=== PATIENT | male | born 1980 | race Caucasian/White ===

== ENCOUNTER 2022-07-19 02:22 | Emergency (ER) | payer MEDICARE, SELFPAY ==
[2022-07-19 02:23] VITALS: BP 122/84; PULSE 81; RESP 22; TEMP 36.6; O2SAT 94; BMI 21.2
[2022-07-19 02:49] VITALS: O2SAT 95
--- NOTE | 2022-07-19 02:49 | ED_ITS ---
HPI - COVID General: Chief Complaint: COVID symptoms Stated Complaint: Sinus infection\Fever\N\V Time Seen by Provider: 07/19/22 02:37 History of Present Illness: Patient is a 42-year-old male presenting today with nausea vomiting diarrhea as well as cough and sore throat. Patient notes onset of symptoms this evening. Notes symptoms are severe. 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 He notes this pain is consistent due to the pain he is had in the past. He also notes fevers and chills. Diffuse body aches as well as headache. Was seen in urgent care earlier this evening. Started on doxycycline. He notes that despite this medi cine he does not appear to be improving. COVID Results: No Data to Display Review of Systems General: Reports: 10 or more systems reviewed and unremarkable except in HPI and below Physical Exam Const: COMMON NORMALS: no acute distress, patient oriented x3 and alert GENERAL APPEARANCE: cooperative ORIENTATION/CONSCIOUSNESS: Yes awake, Yes oriented to person, Yes oriented to place and Yes oriented to time HENMT: COMMON NORMALS: normocephalic, atraumatic, external ears normal, Normal external nose present and moist oral mucous membranes HEAD & SCALP: normal to inspection, normocephalic and atraumatic NOSE: Normal external nose present GENERAL EAR: hearing grossly impaired EXTERNAL EAR: Yes external ears normal Eye: COMMON NORMALS: Equal, round and reactive pupils present, EOMs intact bilaterally, conjunctivae normal and no scleral icterus GENERAL EYE: appearance normal, both eyes and all related structures EYELID: eyelids normal CONJUNCTIVA: Yes conjunctivae normal SCLERA: sclerae normal PUPIL: Yes Equal, round and reactive pupils present Neck/C-Spine: COMMON NORMALS: full ROM, supple and no JVD GENERAL: Yes normal visual inspection Lymph: LYMPHATIC: no lymphadenopathy noted and no lymphedema noted Chest: COMMONS NORMALS: normal inspection of the chest Resp: COMMON NORMALS: normal respiratory effort, No retractions and No use of accessory muscles Cardio: COMMON NORMALS: no JVD, regular rate and regular rhythm RATE: reg ular rate RHYTHM: regular rhythm GI: COMMON NORMALS: Normal to inspection, nondistended, normoactive bowel sounds present : COMMON NORMALS: Yes no CVA tenderness BLADDER/KIDNEY EXAM: Yes no CVA tenderness Back/Pelvis: COMMON NORMALS: no CVA tenderness and thoracic and lumbar spine normal to inspection Extremity: COMMON NORMALS: normal to inspection, full ROM and capillary refill normal GENERAL: Yes normal exam except as noted Neuro: COMMON NORMALS: patient oriented x3, CN's II-XII intact bilaterally, moves all extremities, no focal motor deficits, no sensory deficits noted and gait normal SENSORIUM/ORIENTATION: Yes alert, Yes oriented to person, Yes oriented to place and Yes oriented to time Psych: COMMON NORMALS: mental status grossly normal, Normal thought process present, cooperative and normal affect THOUGHT PROCESS: Normal thought process present Skin: COMMON NORMALS: no rashes or lesions noted and no wounds GENERAL SKIN EXAM: no rashes or lesions noted Course Vital Signs: Vital signs: Vital Signs Temperature 97.9 F 07/19/22 02:23 Pulse Rate 81 07/19/22 02:23 Respiratory Rate 22 H 07/19/22 02:23 Blood Pressure 122/84 07/19/22 02:23 Pulse Oximetry 95 07/19/22 02:49 Oxygen Delivery Me thod 07/19/22 02:49 MDM - COVID Medical Decision Making 42-year-old male presenting with nausea vomiting diarrhea. Abdominal exam is benign and not suggestive of acute life-threatening pathology. Vitals are with slight tachypnea otherwise within normal limits. Patient was given Zofran with resulting p.o. tolerance. Will give Zofran for home. COVID test sent. Patient 's results were unable to be given in the ED secondary to down analyzer. Patient was given strict return precautions and recommended routine outpatient follow-up. 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
[2022-07-19] MEDS: ondansetron 4 MG Tablet 8 MG PO (02:54)
[2022-07-19 03:07] VITALS: BP 149/76; PULSE 89; RESP 16; O2SAT 95
[2022-07-19 04:38] LABS: Adenovirus Not Detected (NOT DETECT); Chlamydia Pneumoniae Not Detected (NOT DETECT); Coronavirus 229E,HKU1,NL63,OC4 Not Detected (NOT DETECT); Human Metapneumovirus Not Detected (NOT DETECT); Human Rhinovirus/Enterovirus Detected (NOT DETECT); Influenza A Not Detected (NOT DETECT); Influenza A H1 Not Detected (NOT DETECT); Influenza A H1-2009 Not Detected (NOT DETECT); Influenza A H3 Not Detected (NOT DETECT); Influenza B Not Detected (NOT DETECT); Mycoplasma Pneumoniae Not Detected (NOT DETECT); Parainfluenza Virus Type 1 Not Detected (NOT DETECT); Parainfluenza Virus Type 2 Not Detected (NOT DETECT); Parainfluenza Virus Type 3 Not Detected (NOT DETECT); Parainfluenza Virus Type 4 Not Detected (NOT DETECT); Respiratory Syncytial Virus A Not Detected (NOT DETECT); Respiratory Syncytial Virus B Not Detected (NOT DETECT); SARS-COV-2 Not Detected (NOT DETECT)
[2022-07-19 06:48] LABS: Human Metapneumovirus Not Detected (NOT DETECT); Human Rhinovirus/Enterovirus Detected (NOT DETECT); Results from Genmark
== END 2022-07-19 03:08 | disposition home or self-care (01) ==
PROVIDERS: Emergency Provider Emergency Medicine
DX: R10.9 Unspecified abdominal pain (principal); R11.2 Nausea with vomiting, unspecified; B34.1 Enterovirus infection, unspecified
CPT/HCPCS: 71045; 80053; 85025; 87635; 87801; 93005; 96361; 96374; 99283; 99285; J2405; Q0162

== ENCOUNTER 2022-07-19 09:33 | Emergency (ER) | payer MEDICARE, SELFPAY ==
[2022-07-19 09:50] VITALS: BMI 21.9
[2022-07-19 09:55] VITALS: BP 116/82; PULSE 90; RESP 18; TEMP 36.5; O2SAT 93
--- NOTE | 2022-07-19 10:05 | ECG_ITS ---
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 Measurements Intervals [place] Rate: 84 P: 80 [place]: 152 QRS: 81 QRSD: 97 T: 55 QT: 332 QTc: 394 Interpretive Statements SINUS RHYTHM ST ELEVATION, PROBABLY EARLY REPOLARIZATION [ST ELEVATION WITH NORMALLY INFLECTED T-WAVE] No previous ECG available for comparison Electronically Signed On 07-19-2022 16:23:37 CDT by Tasneem Wilcox M.D. [email or web address] Biomedical Research Institutecleveland clinicAnna-Rita [employer]/store/OM/[id number]
--- NOTE | 2022-07-19 10:05 | XR_ITS ---
WS: [id number] Portable AP upright chest, 07/19/2022 Clinical Data: dyspnea/cough Comparison: None. Findings: No nodules, masses or effusions are seen. The heart is normal. The pulmonary vascularity is not increased. No pneumonia or pneumothorax is seen. XR/XR chest 1V portable [id number] Impression: Negative chest.
--- NOTE | 2022-07-19 10:16 | PC.NURSE ---
pt reports he went to urgent care and they gave him doxycycline for a sinus infections. pt reports he started vomiting last night. pt reports concerns because he had stomach surgery in the past and was told that he would never vomit again. family reports the vomit looked like the green stuff that was draining from his nose. pt resting in bed, lung sounds clear bilat. bowel sounds present x4. abdomen soft and tender to palpation.
[2022-07-19] MEDS: ondansetron 2 mg/ML SDV 2 mL 4 MG IVP (10:31)
[2022-07-19] MEDS: lactated ringers 1,000 ML 999 ML IV (10:35)
[2022-07-19 10:42] LABS: Basophils % 0.2 %; Eosinophils % 0.1 %; Hematocrit 43.3 % (42.0-52.0); Hemoglobin 14.5 g/dL (11.7-16.6); Lymphocytes # 1.3 10^3/uL (0.8-4.8); Lymphocytes % 9.3 %; Mean Corpuscular HGB Conc 33.5 g/dL (30.0-36.0); Mean Corpuscular Hemoglobin 30.5 pg (28.0-34.0); Mean Platelet Volume 11.2 fL (7.4-10.4); Monocytes # 0.9 10^3/uL (0.2-0.9); Monocytes % 6.7 %; Neutrophils # 11.41 10^3/uL (1.8-7.7); Neutrophils % 83.4 %; Nucleated Red Blood Cells % 0 %; Platelet Count 234 10^3/cmm (130-400); Red Blood Count 4.76 10^6/uL (4.1-5.3); Red Cell Distribution Width 12.7 % (12.1-15.1); White Blood Count 13.7 10^3/uL (4.0-10.0)
--- NOTE | 2022-07-19 10:45 | W.ED.NAVMDI ---
HPI - Nausea/Vomiting/Diarrhea General: Chief complaint: Nausea/Vomiting/Diarrhea Stated complaint: Infection, dehydration, and pain Time Seen by Provider: 07/19/22 09:59 Source: patient Mode of arrival: ambulatory History of Present Illness: 42-year-old male presents emergency room he was here last night with complaint of sinus infection and drainage she has had for the last couple of days he was started on some antibiotics actually seem to make things worse when he takes them he gets more nauseous. Initially a little bit of diarrhea but that resolved when he was seen last night he was tested I did a respiratory panel was positive for enterovirus COVID was negative. He returns now because he still having symptoms. Patient denies any significant chest pain or shortness of breath. MD elicited complaint: nausea and vomiting Onset (ago): day(s) (3) Description of vomiting: food contents and watery Associated nausea: Yes Associated abdominal pain: Yes Location of pain: Diffuse Radiation: diffuse Pain consistency: intermittent Severity: moderate Quality: cramping Exacerbating factors: none Relieving factors: none Associated symtoms: Reports nausea; Denies chest pain, dysuria, fatigue or malaise Review of Systems Const: Denies: fever(s), chills, body aches, change in appetite, fatigue or malaise ENMT: Denies: throat pain, ear or mastoid pain, nasal discharge or nasal congestion Card: Denies: chest pain, edema, dyspnea on exertion or orthopnea Resp: Denies: dyspnea, productive cough or non-productive cough GI: Reports: abdominal pain, nausea and vomiting; Denies: diarrhea : Denies: flank pain, difficulty urinating, dysuria, urinary frequency or urinary urgency Skin/Breast: Denies: rash or pruritus Physical Exam Const: COMMON NORMALS: no acute distress GENERAL APPEARANCE: cooperative and comfortable ORIENTATION/CONSCIOUSNESS: Yes awake, Yes oriented to person, Yes oriented to place and Yes oriented to time HENMT: COMMON NORMALS: normocephalic, atraumatic and hearing grossly normal bilaterally HEAD & SCALP: normocephalic and atraumatic Resp: COMMON NORMALS: normal respiratory effort, No retractions, No use of accessory muscles and clear to auscultation bilaterally AUSCULTATION: clear to auscultation bilaterally Cardio: COMMON NORMALS: regular rate, regular rhythm and No murmurs present (Cardio) RATE: regular rate RHYTHM: regular rhythm GI: COMMON NORMALS: Soft to palpation and No hepatosplenomegaly present AUSCULTATION: Yes normoactive bowel sounds PALPATION: Yes Soft to palpation, No Tenderness to palpation present (GI), No Guarding due to palpation present (GI) and Yes No hepatosplenomegaly present Extremity: COMMON NORMALS: normal to inspection, capillary refill normal, no clubbing, cyanosis or edema, no calf tenderness and no pedal edema Neuro: SENSORIUM/ORIENTATION: Yes oriented to person, Yes oriented to place and Yes oriented to time Skin: COMMON NORMALS: no rashes or lesions noted GENERAL SKIN EXAM: no rashes or lesions noted Course Vital Signs: Vital signs: Vital Signs Temperature 97.7 F 07/19/22 09:55 Pulse Rate 83 07/19/22 13:19 Respiratory Rate 18 07/19/22 13:19 Blood Pressure 117/70 07/19/22 13:19 Pulse Oximetry 93 07/19/22 13:19 Oxygen Delivery Me thod 07/19/22 09:55 MDM - Nausea/Vomiting/Diarrhea Medical Decision Making Patient symptoms typical for the expected enterovirus patient was given IV fluids he is feeling much better we will discharge him home with promethazine to use. Clear liquid at 24 to 40 hours and advance as tolerated Medical Records I reviewed the patient's medical records. Lab Data I reviewed the patient's lab results. : 07/19/22 10:31 07/19/22 12:20 Radiology Impressions Chest X-Ray 07/19/22 10:05 Impression: Negative chest. Laboratory Results WBC 13.7 10^3/uL (4.0-10.0) H 07/19/22 10:31 RBC 4.76 10^6/uL (4.1-5.3) 07/19/22 10:31 Hgb 14.5 g/dL (11.7-16.6) 07/19/22 10:31 Hct 43.3 % (42.0-52.0) 07/19/22 10:31 MCV 91.0 fl (80-94) 07/19/22 10:31 MCH 30.5 pg (28.0-34.0) 07/19/22 10:31 MCHC 33.5 g/dL (30.0-36.0) 07/19/22 10:31 RDW 12.7 % (12.1-15.1) 07/19/22 10:31 Plt Count 234 10^3/cmm (130-400) 07/19/22 10:31 MPV 11.2 fL (7.4-10.4) H 07/19/22 10:31 Neut % (Auto) 83.4 % 07/19/22 10:31 Lymph % (Auto) 9.3 % 07/19/22 10:31 [place] % (Auto) 6.7 % 07/19/22 10:31 Eos % (Auto) 0.1 % 07/19/22 10:31 Baso % (Auto) 0.2 % 07/19/22 10:31 Neut # (Auto) 11.41 10^3/uL (1.8-7.7) H 07/19/22 10:31 Lymph # (Auto) 1.3 10^3/uL (0.8-4.8) 07/19/22 10:31 [place] # (Auto) 0.9 10^3/uL (0.2-0.9) 07/19/22 10:31 Eos # (Auto) 0.0 10^3/uL (0.0-0.8) 07/19/22 10:31 Baso # (Auto) 0.0 10^3/uL (0.0-0.1) 07/19/22 10:31 Nucleated RBC % (auto) 0 % 07/19/22 10:31 Nucleated RBCs # 0.0 /100WBC 07/19/22 10:31 Sodium 137 mmol/L (136-145) 07/19/22 12:20 Potassium 4.1 mmol/L (3.5-5.1) 07/19/22 12:20 Chloride 102 mmol/L (98-107) 07/19/22 12:20 Carbon Dioxide 25 mmol/L (22-29) 07/19/22 12:20 Anion Gap 14.1 (5-19) 07/19/22 12:20 BUN 10 mg/dL (6-20) 07/19/22 12:20 Creatinine 1.0 mg/dL (0.7-1.2) 07/19/22 12:20 GFR Calculation 81.2 mL/min (90-130) L 07/19/22 12:20 Glucose 114 mg/dL (65-115) 07/19/22 12:20 Calculated Osmolality 284 mOsm/kg (285-295) L 07/19/22 12:20 Calcium 9.2 mg/dL (8.5-10.5) 07/19/22 12:20 Total Bilirubin 0.7 mg/dL (0.15-1.2) 07/19/22 12:20 AST 15 U/L (0-40) 07/19/22 12:20 ALT 15 U/L (0-41) 07/19/22 12:20 Alkaline Phosphatase 73 U/L (40-130) 07/19/22 12:20 Total Protein 7.1 g/dL (6.6-8.7) 07/19/22 12:20 Albumin 3.9 g/dL (3.5-5.2) 07/19/22 12:20 Globulin 3.2 g/dL (1.3-4.6) 07/19/22 12:20 Discharge Plan Discharge Patient Disposition: Home Clinical Impression: Enterovirus infection Condition: Stable Prescriptions: New promethazine 25 mg tablet 25 mg PO Q6H PRN (Reason: nausea and vomiting) Qty: 20 0RF No Action doxycycline hyclate 100 mg tablet 100 mg PO BID 10 Days Qty: 20 0RF ondansetron 8 mg tablet,disintegrating 8 mg PO Q8H PRN (Reason: nausea and vomiting) 5 Days Qty: 30 0RF ProAir HFA 90 mcg/actuation Hfa Aerosol Inhaler 2 puff INHALATION QID PRN (Reason: Shortness Of Breath) Fiber Gummies 2 gram Tablet,Chewable 4 g PO DAILY Probiotic Gummies 2 tab PO DAILY Discharge Orders: Discharge ED (Routine); Ordered 07/19/22 Ordered By: Tio Cummings Discharge Diet: Clear Liquid Discharge Activity: Increase activity as tolerated Patient Instructions: Opioid Safety, Pain Management Activity Restrictions/Additional Instructions: Clear liquid diet for 24 to 48 hours and advance as tolerated Coding Level of Care Code ED 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
[2022-07-19 12:44] LABS: Alanine Aminotransferase 15 U/L (0-41); Albumin Level 3.9 g/dL (3.5-5.2); Alkaline Phosphatase 73 U/L (40-130); Anion Gap 14.1 (5-19); Aspartate Amino Transferase 15 U/L (0-40); Blood Urea Nitrogen 10 mg/dL (6-20); Calcium 9.2 mg/dL (8.5-10.5); Carbon Dioxide 25 mmol/L (22-29); Chloride 102 mmol/L (98-107); Globulin 3.2 g/dL (1.3-4.6); Glomerular Filtration Rate 81.2 mL/min (90-130); Glucose 114 mg/dL (65-115); Osmolality Calculated 284 mOsm/kg (285-295); Potassium 4.1 mmol/L (3.5-5.1); Sodium 137 mmol/L (136-145); Total Bilirubin 0.7 mg/dL (0.15-1.2); Total Protein 7.1 g/dL (6.6-8.7)
[2022-07-19 13:19] VITALS: BP 117/70; PULSE 83; RESP 18; O2SAT 93
== END 2022-07-19 13:21 | disposition home or self-care (01) ==
PROVIDERS: Emergency Provider Family Medicine
DX: B34.1 Enterovirus infection, unspecified (principal)
CPT/HCPCS: 71045; 80053; 85025; 93005; 96361; 96374; 99285; J2405

== ENCOUNTER 2022-10-16 12:41 | Outpatient (CLI) | payer MEDICARE, SELFPAY ==
--- NOTE | 2022-10-16 12:51 | XR_ITS ---
WS: [id number] Exam: XR cervical spine fl/ex [id number] Date/Time of Exam: 10/16/2022 12:54 PM Reason For Exam: CERVICALGIA No fracture or dislocation. In the neutral position there is straightening of the upper C-spine. No s ignificant flexion or extension instability is demonstrated. Normal paraspinal soft tissues. XR/XR cervical spine fl/ex [id number] IMPRESSION: 1. No significant flexion or extension instability. 2. There is straightening of the mid and upper C-spine in the neutral position.
== END 2022-10-16 12:42 | disposition home or self-care (01) ==
LOC: RAD 12:44
PROVIDERS: Visit Provider Nurse Practitioner
DX: M54.2 Cervicalgia (principal)
CPT/HCPCS: 72040

== ENCOUNTER 2022-11-07 20:00 | Outpatient (CLI) | payer MEDICARE, SELFPAY | END 2022-11-07 20:01 | disposition home or self-care (01) | LOC: SLEEP 11-08 05:06 | PROVIDERS: Visit Provider Family Medicine | DX: G47.33 Obstructive sleep apnea (adult) (pediatric) (principal) | CPT/HCPCS: 95810 ==

== ENCOUNTER 2022-11-22 11:40 | Emergency (ER) | payer MEDICARE, SELFPAY ==
[2022-11-22 12:09] VITALS: BP 119/87; PULSE 81; RESP 14; TEMP 36.4; O2SAT 98; BMI 21.1
--- NOTE | 2022-11-22 12:39 | W.ED.ABDPA2 ---
HPI - Abdominal Pain General: Chief Complaint: Abdominal Pain Stated Complaint: cant eat, sleep, no bowel movements Time Seen by Provider: 11/22/22 12:28 History of Present Illness: 41-year-old male in with concerns of crampy abdominal pain left greater than right. Is been going on for quite some time has been having some problems with his bowels but also his GI tract he was recently put on a generic proton pump inhibitor. He has been on this before and its helped his reflux somewhat but is cause some problems with constipation. Patient says that he frequently does not go as much as he thinks should. Patient's had some bowel movements more recently including this morning which are very small in caliber and volume. No fever or chills he has not had any vomiting. He is just generally felt unwell. He notes that sometimes foods can make this worse he has not found anything that is helped too much. Associated Symptoms: Reports bloating, change in bowel habits, constipation, GI cramping, excessive flatus and heartburn; Denies chills, coffee ground emesis, diarrhea, fever(s), hematochezia, hematemesis, melena and vomiting Review of Systems Const: Reports: malaise; Denies: fever(s), chills, body aches or change in weight Card: Denies: chest pain or palpitations Resp: Denies: dyspnea GI: Reports: abdominal pain, heartburn, constipation, bloating, GI cramping, excessive flatus and change in bowel habits; Denies: vomiting, hematemesis, coffee ground emesis, dysphagia, diarrhea, hematochezia or melena Skin/Breast: Denies: rash Physical Exam Const: GENERAL APPEARANCE: cooperative, comfortable and well developed; not in distress Resp: COMMON NORMALS: clear to auscultation bilaterally AUSCULTATION: clear to auscultation bilaterally, no crackles, no rales and no rhonchi Cardio: COMMON NORMALS: regular rate and regular rhythm RATE: regular rate RHYTHM: regular rhythm GI: COMMON NORMALS: Soft to palpation AUSCULTATION: Yes normoactive bowel sounds and No High-pitched bowel sounds present PALPATION: Yes Soft to palpation, No Firmness to palpation present (GI), No Tenderness to palpation present (GI), No Guarding due to palpation present (GI), No Rigid due to palpation, No Hepatomegaly present and No Splenomegaly present : COMMON NORMALS: No no CVA tenderness BLADDER/KIDNEY EXAM: No bladder normal to palpation and No no CVA tenderness Back/Pelvis: COMMON NORMALS: negative for no CVA tenderness Course Vital Signs: Vital signs: Vital Signs Temperature 97.6 F 11/22/22 12:09 Pulse Rate 81 11/22/22 12:09 Respiratory Rate 14 11/22/22 12:09 Blood Pressure 119/87 11/22/22 12:09 Pulse Oximetry 98 11/22/22 12:09 Oxygen Delivery Me thod 11/22/22 12:09 MDM - Abdominal Pain Medical Decision Making 41-year-old male in with abdominal pain longstanding in nature. More recently has had increasing trouble with constipation. I reviewed his KUB reveals some gas and some stool on the right side. Differential is broad but I do not think he has an acute abdomen I do not think that he has concerns of appendicitis or more emergent condition. He may benefit from GI consultation and endoscopy but he meets a lot of [place] criteria. We will try a trial of dicyclomine and get him some follow-up. I do not think a big work-up in the emergency department is indicated based on history physical examination. Patient appears quite comfortable and on reexamination of his abdomen is fairly benign. Discharge Plan Discharge Patient Disposition: Home Clinical Impression: Abdominal pain Condition: Stable Prescriptions: New dicyclomine 10 mg capsule 10 mg PO BID Qty: 20 0RF No Action doxycycline hyclate 100 mg tablet 100 mg PO BID 10 Days Qty: 20 0RF ProAir HFA 90 mcg/actuation Hfa Aerosol Inhaler 2 puff INHALATION QID PRN (Reason: Shortness Of Breath) Fiber Gummies 2 gram Tablet,Chewable 4 g PO DAILY Probiotic Gummies 2 tab PO DAILY promethazine 25 mg tablet 25 mg PO Q6H PRN (Reason: nausea and vomiting) Qty: 20 0RF Discharge Orders: Discharge ED (Routine); Ordered 11/22/22 Ordered By: Liam Rendon Patient Instructions: Abdominal Pain (ED), Opioid Safety, Pain Management Activity Restrictions/Additional Instructions: 1. Increase fluids and fiber. Take Rx as directed. 2. Follow up with PCP in 3-5 days for recheck. 3. Return to ED for fever, vomiting or worseing symptoms / pain. 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
--- NOTE | 2022-11-22 12:40 | XR_ITS ---
WS: [id number] Exam: XR KUB portable [id number] Date/Time of Exam: 11/22/2022 12:44 PM Reason For Exam: Pain No bowel obstruction or free air. No sign of organ enlargement. 6 x 3 mm calcification in the right a bdomen may represent a renal stone or gallstone. Bony structures are intact. XR/XR KUB portable [id number] IMPRESSION: 1. No acute abdominal finding. 2. 6 x 3 mm right abdominal calcification that could be a small gallstone or re nal stone.
[2022-11-22 13:38] VITALS: BP 120/84; PULSE 70; RESP 16; O2SAT 97
== END 2022-11-22 13:46 | disposition home or self-care (01) ==
PROVIDERS: Emergency Provider Family Medicine
DX: R10.9 Unspecified abdominal pain (principal)
CPT/HCPCS: 74018; 99283

== ENCOUNTER 2022-12-05 12:58 | Outpatient (CLI) | payer MEDICARE, SELFPAY ==
--- NOTE | 2022-12-05 | MR_ITS ---
WS: [id number] MRI CERVICAL SPINE NONCONTRAST HISTORY: CERVICALGIA COMPARISON: None available. Technique: Multiplanar, multisequence noncontrast imaging of the cervical spine. C5 retrolisthesis by 2 mm. No fractures or marrow edema. Minimal anterior wedging of T3 and T4 from r emote fractures. Signal within the cervical cord is normal. Visualized posterior fossa is unremarkable. Craniocervical junction, C1 and C2 relationship, odontoid process and soft tissues are normal. C2-C3: Normal. C3-C4: Mild annular disc bulging and osteophytic ridging. Small bilateral foraminal osteophytes, RIGH T greater than LEFT. Mild RIGHT foraminal stenosis. C4-C5: Very mild osteophytic ridging. No stenosis. C5-C6: Small central disc protrusion causing mild effacement of ventral CSF. Small bilateral foramina l osteophytes. Mild central and bilateral foraminal stenosis. C6-C7: Normal. C7-T1: Normal. Paraspinal soft tissue are normal. MR/MR cervical spin wo con* [id number] IMPRESSION: 1. No high-grade central or foraminal stenosis. 2. Mild RIGHT foraminal stenosis due to osteophytes at C3-4. 3. Mild central and bilateral foraminal stenosis at C5-6 due to a combination of a central disc protrusion and foraminal osteophytes.
== END 2022-12-05 12:59 | disposition home or self-care (01) ==
LOC: RAD 13:01
PROVIDERS: PCP Family Medicine; Visit Provider Nurse Practitioner
DX: M54.2 Cervicalgia (principal); M48.02 Spinal stenosis, cervical region
CPT/HCPCS: 72141

== ENCOUNTER → 2023-03-19 08:40 | Outpatient (BNVA) | payer MEDICARE, SELFPAY | PROVIDERS: PCP Family Medicine; Referring Provider Anesthesiology Pain Medicine; Visit Provider Anesthesiology Pain Medicine | DX: M54.2 Cervicalgia (principal); M79.601 Pain in right arm; M79.602 Pain in left arm | CPT/HCPCS: 99205 ==

== ENCOUNTER 2023-05-08 20:00 | Outpatient (CLI) | payer MEDICARE, SELFPAY | END 2023-05-08 20:01 | disposition home or self-care (01) | LOC: SLEEP 05-09 05:34 | PROVIDERS: PCP Family Medicine; Visit Provider Anesthesiology Pain Medicine | DX: G47.33 Obstructive sleep apnea (adult) (pediatric) (principal) | CPT/HCPCS: 95811 ==

== ENCOUNTER 2024-01-02 13:36 | Outpatient (CLI) | payer MEDICARE, SELFPAY ==
--- NOTE | 2024-01-02 13:53 | XR_ITS ---
WS: [id number] Right shoulder, 3 views, 01/02/2024 Clinical Data: PAIN IN R SHOULDER Comparison: None. Findings: No fractures or dislocations are seen. The AC joint is normal. The adjacent right clavicle, right sca pula and ribs are normal. The soft tissues are unremarkable. Impression: Negative right shoulder.
== END 2024-01-02 13:37 | disposition home or self-care (01) ==
LOC: RAD 13:45
PROVIDERS: PCP Family Medicine; Visit Provider Anesthesiology Pain Medicine
DX: M25.511 Pain in right shoulder (principal)
CPT/HCPCS: 73030

== ENCOUNTER 2024-02-27 17:11 | Emergency (ER) | payer MEDICARE, SELFPAY ==
--- NOTE | 2024-02-27 17:23 | ECG_ITS ---
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 Measurements Intervals [place] Rate: 82 P: 74 [place]: 160 QRS: 68 QRSD: 98 T: 26 QT: 340 QTc: 397 Interpretive Statements SINUS RHYTHM NONSPECIFIC ST & T-WAVE ABNORMALITY Compared to ECG 07/19/2022 10:11:37 T-wave abnormality now present ST (T wave) deviation no longer present Early repolarization no longer present Electronically Signed On 02-29-2024 12:38:37 CDT by Eric Tracy M.D. [email or web address]/NU/[id number] f
--- NOTE | 2024-02-27 17:51 | XRR_ITS ---
PROCEDURE INFORMATION: Exam: XR Chest Exam date and time: 02/27/2024 6:36 PM Age: 43 years old Clinical indication: Chest wall pain; Additional info: Chest pain TECHNIQUE: Imaging protocol: Radiologic exam of the chest. Views: 1 view. COMPARISON: CR XR chest 1V portable [id number] 07/19/2022 10:31 AM FINDINGS: Lungs: Unremarkable. No consolidation. Pleural spaces: Unremarkable. No pleural effusion. No pneumothorax. Heart/Mediastinum: Unremarkable. No cardiomegaly. Bones/joints: Unremarkable. XR/XR chest 1V portable [id number] IMPRESSION: No acute findings.
[2024-02-27 18:43] VITALS: BP 121/85; PULSE 82; RESP 18; TEMP 36.6; O2SAT 95; BMI 24.1
[2024-02-27 19:21] VITALS: BP 135/90; PULSE 104; RESP 18; O2SAT 97
[2024-02-27 19:25] LABS: Basophils % 0.4 %; Eosinophils # 0.1 10^3/uL (0.0-0.8); Eosinophils % 1.3 %; Hematocrit 47.7 % (37-53); Lymphocytes # 2.9 10^3/uL (0.8-4.8); Lymphocytes % 38.6 %; Mean Corpuscular HGB Conc 33.5 g/dL (30-55); Mean Corpuscular Hemoglobin 31.2 pg (27-33); Mean Platelet Volume 10.7 fL (7.4-10.4); Monocytes # 0.4 10^3/uL (0.2-0.9); Monocytes % 5.8 %; Neutrophils # 4.04 10^3/uL (1.8-7.7); Neutrophils % 53.8 %; Nucleated Red Blood Cells % 0 %; Platelet Count 233 10^3/cmm (157-399); Red Blood Count 5.13 10^6/uL (3.85-5.65); Red Cell Distribution Width 12.4 % (12.1-15.1); White Blood Count 7.53 10^3/uL (3.29-11.43)
[2024-02-27 19:46] LABS: Troponin(5th) Baseline 9 ng/L (0-15)
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
[2024-02-27 19:48] LABS: Alanine Aminotransferase 12 U/L (0-41); Albumin Level 4.3 g/dL (3.5-5.2); Alkaline Phosphatase 80 U/L (40-130); Blood Urea Nitrogen 14 mg/dL (6-20); Calcium 8.6 mg/dL (8.5-10.5); Carbon Dioxide 27 mmol/L (22-29); Chloride 105 mmol/L (98-107); Creatinine Clr Calc Pharmacy 81.1746; Globulin 2.4 g/dL (1.3-4.6); Glomerular Filtration Rate 72.4 mL/min (90-130); Glucose 117 mg/dL (65-115); Osmolality Calculated 296 mOsm/kg (285-295); Sodium 142 mmol/L (136-145); Total Bilirubin 0.2 mg/dL (0.15-1.2); Total Protein 6.7 g/dL (6.6-8.7)
[2024-02-27 19:50] LABS: Anion Gap 14.3 (5-19); Aspartate Amino Transferase 16 U/L (0-40); Potassium 4.3 mmol/L (3.5-5.1)
--- NOTE | 2024-02-27 19:51 | ECG_ITS ---
[facility] Test Date: 2024-02-27 Pat Name: Wan Tolbert Department: Room: Gender: Male [employer]: : 1980 Requested By: Leydi Scott Order Number: [id number] Kerr MD: Eric Tracy M.D. Measurements Intervals Ruby Rate: 93 P: 71 ND: 152 QRS: 80 QRSD: 98 T: 5 QT: 334 QTc: 416 Interpretive Statements SINUS RHYTHM NONSPECIFIC T-WAVE ABNORMALITY Compared to ECG 02/27/2024 17:23:07 No significant changes Electronically Signed On 02-29-2024 12:48:53 CDT by Eric Tracy M.D. [id number]
[2024-02-27 21:00] VITALS: BP 107/84; PULSE 78; O2SAT 91
[2024-02-27 22:00] VITALS: BP 105/74; PULSE 70; O2SAT 95
[2024-02-27 22:05] LABS: Troponin 5 2HR 9.54 ng/L (0-15); Troponin 5 2HR Delta 0.54 ABS# (0-10)
[2024-02-27 22:32] VITALS: BP 128/86; PULSE 71; RESP 18; O2SAT 95
== END 2024-02-27 22:32 | disposition home or self-care (01) ==
PROVIDERS: Physician Assistant; Emergency Provider Emergency Medicine; PCP Family Medicine
DX: R42 Dizziness and giddiness (principal); R55 Syncope and collapse
CPT/HCPCS: 36415; 71045; 80053; 84484; 85025; 93005; 99285

== ENCOUNTER 2024-09-09 17:19 | Emergency (ER) | payer MEDICARE, SELFPAY ==
[2024-09-09 17:40] VITALS: BP 117/75; PULSE 101; RESP 18; TEMP 36.6; O2SAT 95; BMI 23.6
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
== END 2024-09-09 20:37 | disposition home or self-care (01) ==
PROVIDERS: Emergency Provider Physician Assistant; PCP Family Medicine
DX: Z04.1 Encounter for examination and observation following transport accident (principal)
CPT/HCPCS: 72125; 72128; 73030; 99284